=== PATIENT | male | born 1965 | race Caucasian/White ===

== ENCOUNTER → 2018-10-01 12:50 | Outpatient (CLI) | payer MEDICAID ==
[~2018-10-01] VITALS: Ht 175.3 cm; Wt 83.5 kg
[2018-10-01 14:37] VITALS: Ht 175.3 cm; Wt 83.5 kg
== END | disposition home or self-care (01) ==
LOC: D.FANS 12:50
DX: E11.9 Type 2 diabetes mellitus without complications (principal)